=== PATIENT | female | born 1980 | race American Indian/Alaskan Native ===

== ENCOUNTER 2018-02-04 06:07 | Day surgery (SDC) | payer MEDICAID ==
--- NOTE | 2018-02-03 18:27 | History and Physical Report ---
History of Present Illness Date of examination: 02/02/18 Chief complaint: Multiparity desires permanent sterilization, dysfunctional uterine bleeding History of present illness: The patient is a 37-year-old -[place]er female 6 para 40-4 who presents for surgical sterilization despite knowledge of long-acting reversible contraceptives and dilation and curettage with hysteroscopy and NovaSure endometrial ablation secondary to dysfunctional uterine bleeding. Past History Past Medical History: hypertension, other (obesity) Past Surgical History: appendectomy, cholecystectomy, SET UP MECH[employer]IC [employer]OMATIC LINE/uterine surgery ( cervical conization), section SET UP MECH[employer]IC AUTOMATIC LINE History: abnormal PAP smear, trichomonas (remote history) Family/Genetic History: diabetes, heart disease, hypertension, cancer Social history: no significant social history Medications and Allergies Allergies Allergy/AdvReac Type Severity Reaction Status Date / Time Sulfa (Sulfonamide Allergy Hives Verified 02/03/18 16:39 Antibiotics) Home Medications Medication Instructions Recorded Confirmed Last Taken Type No Known Home Medications [No 02/03/18 02/03/18 Unknown History Reported Home Medications] Review of Systems All systems: negative - Physical Exam Breasts: Positive: deferred Cardiovascular: Regular rate Lungs: Positive: Clear to auscultation Abdomen: Positive: soft (obese) Extremities: Positive: normal Results All other labs normal. Assessment and Plan A: Dysfunctional uterine bleeding Desires permanent sterilization Hypertension Obesity P: Proceed with laparoscopic bilateral tubal ligation, dilation and curettage, hysteroscopy, NovaSure endometrial ablation and other indicated procedures.
[~2018-02-04 06:07] MED LIST: ANCEF/STERILE WATER 2 GM/20 ML 2 GM/20 ML SYRINGE IV NR; LACTATED RINGERS 1,000 ML IV SCH
[2018-02-04] MEDS ORDERED: MARCAINE 0.5% 30 ML INFILTRATI ONE (07:14)
--- NOTE | 2018-02-04 07:23 | Anesthesia Day of Surgery ---
Anesthesia Day of Surgery - Day of Surgery Patient Examined: Yes Patient H&P Reviewed: Yes Patient is NPO: Yes
--- NOTE | 2018-02-04 07:23 | Anesthesia Consultation ---
Anesthesia Consult and Med Hx Date of service: 02/04/18 - Airway Anesthetic Teeth Evaluation: Good ROM Head & Neck: Adequate Mental/Hyoid Distance: Adequate Mallampati Class: Class III Intubation Access Assessment: Probably Good - Pulmonary Exam CTA: Yes - Cardiac Exam Cardiac Exam: RRR - Pre-Operative Health Status ASA Pre-Surgery Classification: ASA3 Proposed Anesthetic Plan: General - Pulmonary Hx Smoking: Yes - Cardiovascular System Hx Hypertension: Yes (Not on any meds) - Central Nervous System Hx Psychiatric Problems: No - Gastrointestinal Hx Gastroesophageal Reflux Disease: No - Endocrine Hx Non-Insulin Dependent Diabetes: No - Other Systems Hx Alcohol Use: Yes (occas) Hx Cancer: No Hx Obesity: No
[2018-02-04] MEDS ORDERED: DIPRIVAN 10 MG/ML IV ONE ×2 (07:27→09:52)
[2018-02-04] MEDS ORDERED: SUBLIMAZE ONE (07:27)
[2018-02-04 07:29] LABS: Hematocrit 39.8 % (30.3-42.9); Hemoglobin 13.2 gm/dl (10.1-14.3); Mean Corpuscular HGB Conc 33 % (30-34); Mean Corpuscular Hemoglobin 36 pg (28-32); Mean Corpuscular Volume 107 fl (79-97); Platelet Count 370 K/mm3 (140-440); Red Cell Distribution Width 13.5 % (13.2-15.2)
[2018-02-04] MEDS ORDERED: VERSED IV NR (07:30)
[2018-02-04] MEDS ORDERED: ZOFRAN IV PRN (07:30)
[2018-02-04] MEDS ORDERED: DECADRON ONE (08:43)
[2018-02-04] MEDS ORDERED: PROAIR IH ONE (08:51)
[2018-02-04] MEDS ORDERED: NACL 0.9% IR ONE ×2 (08:55→08:56)
[2018-02-04] MEDS ORDERED: MARCAINE 0.5% INFILTRATI ONE (08:56)
[2018-02-04] MEDS ORDERED: DILAUDID ONE (09:04)
[2018-02-04] MEDS ORDERED: NEOSTIGMINE ONE (09:50)
[2018-02-04] MEDS ORDERED: ROBINUL ONE (09:50)
[2018-02-04] MEDS ORDERED: ZOFRAN ONE (10:00)
[2018-02-04] MEDS ORDERED: ZEMURON IV ONE (10:00)
[2018-02-04] MEDS: DILAUDID IV PRN ×2 (10:40→10:50)
--- NOTE | 2018-02-04 10:40 | Operative Report ---
Operative Report Operative Report: Date of procedure: February 04, 2018 Preoperative diagnosis: 1) Multiparity desires permanent sterilization 2) Dysfunctional Uterine Bleeding 3) Obesity 4) Hypertension Postoperative diagnosis: Same Procedure: 1) Laparoscopic bilateral tubal ligation via Filshie clip method 2) Dilation and Curettage with hysteroscopy 3) Novasure endometrial ablation Surgeon: Adelina Mcqueen M.D. Anesthesia: General endotracheal anesthesia Findings: 1) Small 8-10 wk sized anteverted mobile uterus which sounds to 8 cm 2) Proliferative endometrium on hysteroscopy Estimated blood loss: 25 mL IV fluid: 1000 mL Urine output: 350 mL, clear Specimens: Endometrial curettings to pathology Complications: None. Counts correct 2 Disposition: Stable to PACU Indications for procedure: The patient is a 37-year-old -[place] female 6 para 4024 who presents for surgical sterilization despite knowledge of long-acting reversible contraceptives and surgical management of dysfunctional uterine bleeding. Operation in detail: After the risks, benefits, alternatives and complications of the procedure were explained to the patient, she gave informed consent for the procedure. She was subsequently taken to the operating room with her IV noted to be running and placed in the dorsal supine position with sequential compression devices functioning. General endotracheal anesthesia was then induced with some difficulty. An exam under anesthesia was then performed yielding a 8-10 wk sized anteverted uterus. The patient was then placed in dorsal lithotomy position and prepped and draped in normal sterile fashion. A timeout was then performed. The bladder was then drained of urine yielding 250 mL of clear urine. An open sided speculum was placed into the vagina for visualization of the cervix. A single-tooth tenaculum was placed on the anterior lip of the cervix for traction. The uterus was then sounded to 8 cm. A uterine manipulator was then placed. The single-tooth tenaculum and speculum were then removed from the vagina. The surgeon's gloves were then changed. Attention was then turned to entry into the abdominal cavity. A 5 mm infraumbilical incision was made with an 11 blade. The skin was grasped on either side of the umbilicus with towel clamps and tented up. The Veres needle was placed into the peritoneal cavity at a straight angle, confirmed with a saline drop test. The abdomen was then insufflated with CO2 gas to a pressure of 15 mmHg. A 5 mm Visiport trocar was then placed. An anatomic survey was then performed with findings as indicated above. A second trocar site was created 4 cm superior to the pubic symphysis in the midline measuring 8 mm. An 8 mm trocar was then placed under direct visualization. The patient was placed in Trendelenburg position. The uterus was elevated out of the pelvis, and two Filshie clips were then placed across each fallopian tube at the level of the ampullae. At this time, all instruments were removed from the abdominal cavity. The pneumoperitoneum was released. The trocars were then removed from the peritoneal cavity after Valsalva maneuver. The incisions were then infiltrated with quarter percent Marcaine. The incisions were then reapproximated with 4-0 Vicryl in a subcuticular fashion. They were then each covered with Steri-Strips, telfa, and a tegaderm. At this time, attention was turned to the endometrial ablation. The bladder was again catheterized yielding an additional 100 mL of urine. An open sided speculum was then placed into the vagina for adequate visualization of the cervix. The uterine manipulator used during the tubal ligation was removed. The anterior lip of the cervix was then grasped with a tenaculum for traction. The cervical length was then sounded to 3 cm and the uterus was then sounded to 8 cm. The cavity length was then noted to be 5 cm. At this time a hysteroscope was introduced to visualize the endometrial cavity which revealed proliferative endometrium. A sharp endometrial curettage was then performed and the curettings were sent to pathology. At this time, Hardy dilators were used to sequentially dilate the cervix to a # 25. Next, the disposable NovaSure device was connected to the RF controller. The NovaSure disposable device was deployed to the locked position and noted to fully extend. The device was then placed in the unlocked position. The disposable device was then inserted into the uterine cavity with traction on the tenaculum. The device was then seated per protocol. After moving the device back 0.5 cm, the device was moved superiorly and inferiorly and rotated clockwise and counterclockwise to 45. The cavity width at this time was noted to be 4.5 cm. The cervical collar was then advanced to the cervix. The cavity assessment was then initiated and passed. The ablation procedure was then initiated and lasted for 51 seconds. The cervical collar was moved away from the cervix, the device was moved to the unlocked position, and the disposable NovaSure device was removed from the uterine cavity. The hysteroscope was reintroduced to visualize the charred endometrial cavity. At this time the single-tooth tenaculum was removed from the cervix. The tenaculum puncture sites were hemostatic. The speculum was then removed from the vagina and the procedure was ended. The patient was replaced into the dorsal supine position and extubated without difficulty. She was subsequently to the PACU in stable condition. She tolerated the procedure well. All counts were correct 2.
--- NOTE | 2018-02-04 10:56 | Short Stay Summary ---
Short Stay Documentation Date of service: 02/04/18 - History H&P: dictated Past Surgical History: No surgical history Social history: no significant social history - Allergies and Medications Current Medications: Allergies Sulfa (Sulfonamide Antibiotics) Allergy (Verified 02/03/18 16:39) Hives Home Medications Medication Instructions Recorded Confirmed Last Taken Type RX: No Known Home Medications [No 02/03/18 02/03/18 Unknown History Reported Home Medications] Active Medications Hydromorphone HCl (Dilaudid) 0.5 mg IV Q10MIN PRN PRN Reason: Pain , Severe (7-10) Stop: 02/04/18 12:00 Cefazolin Sodium (Ancef/Sterile Water 2 Gm/20 Ml) 2 gm in 20 mls @ 80 mls/hr IV PREOP NR; Protocol Stop: 02/04/18 23:59 Lactated Ringer's (Lactated Ringers) 1,000 mls @ 100 mls/hr IV DIRECT SUZETTE Last Admin: 02/04/18 07:05 Dose: 100 mls/hr Ondansetron HCl (Zofran) 4 mg IV ONCE PRN PRN Reason: Nausea And Vomiting Stop: 02/04/18 11:30 - Physical exam Breasts: deferred - Brief post op/procedure progress note Date of procedure: 02/04/18 Pre-op diagnosis: Multiparity desires sterilization, DUB, Hypertension, Obesity Post-op diagnosis: same Procedure: 1) Laparoscopic bilateral tubal ligation via Filshie clip method 2) Dilation and Curettage with hysteroscopy 3) Novasure endometrial ablation Anesthesia: GETA Findings: 1) Small 8-10 wk sized anteverted mobile uterus which sounds to 8 cm 2) Proliferative endometrium on hysteroscopy Surgeon: JAKI MCQUEEN Estimated blood loss: minimal (25 mL) Pathology: list (endmetrial curettings to pathology) Specimen disposition: to lab Condition: stable - Hospital course Hospital course: Patient underwent laparoscopic bilateral tubal ligation via Filshie clip method , dilation and curettage with hysteroscopy and NovaSure endometrial ablation she tolerated well. She was inserted in the PACU until she met discharge criteria. She'll follow-up in the office in [address] Mcqueen. - Disposition Condition at discharge: Stable Disposition: - TO HOME OR SELFCARE - Discharge Diagnoses (1) DUB (dysfunctional uterine bleeding) Status: Acute (2) Encounter for sterilization Status: Acute (3) Obesity (BMI 30.0-34.9) Status: Acute (4) Hypertension Status: Acute Qualifiers: Hypertension type: unspecified Qualified Code(s): I10 - Essential (primary ) hypertension Short Stay Discharge Plan Activity: other (Nothing in vagina x 4 wks, no heavy lifting greater than 15 pounds for 4 wks ) Weight Bearing Status: Full Weight Bearing Diet: regular Wound: keep clean and dry, remove dressing (on the second day after surgery ( Friday02/06/18)) Follow up with: SAADIA MENESES MD [Primary Care Provider] - 7 Days JAKI MCQUEEN MD [Staff Physician] - 02/18/18 (Please call to schedule appt for incision check ) Prescriptions: Ibuprofen [Motrin] 800 mg PO Q8HR PRN #30 tablet PRN Reason: Pain oxyCODONE /ACETAMINOPHEN [Percocet 5/325] 1 tab PO Q6HR PRN #30 tablet PRN Reason: Pain
[2018-02-04] MEDS ORDERED: TORADOL ONE (10:59)
[2018-02-04] MEDS ORDERED: TORADOL IV ONE (11:02)
[2018-02-04] MEDS ORDERED: PERCOCET 5/325 ONE (11:23)
[2018-02-04] MEDS ORDERED: PERCOCET 5/325 PO ONE (11:25)
[2018-02-04 15:14] VITALS: BP 152/88
== END 2018-02-04 13:05 | disposition home or self-care (01) ==
LOC: OR 06:07
PROVIDERS: ATTEND Obstetrics & Gynecology
DX: N85.8 Other specified noninflammatory disorders of uterus (principal); N93.8 Other specified abnormal uterine and vaginal bleeding; I10 Essential (primary) hypertension; E66.9 Obesity, unspecified; F17.200 Nicotine dependence, unspecified, uncomplicated; Z68.34 Body mass index [BMI] 34.0-34.9, adult; Z98.890 Other specified postprocedural states; Z90.49 Acquired absence of other specified parts of digestive tract; Z88.2 Allergy status to sulfonamides; Z68.33 Body mass index [BMI] 33.0-33.9, adult
CPT/HCPCS: 36415; 58563; 58671; 81025; 85027; 86850; 86900; 86901; 88305; A4217; J0690; J1100; J1170; J1885; J2250; J2405; J2704; J2710; J3010; J7120

== ENCOUNTER 2018-11-02 00:09 | Emergency (ER) | payer MEDICAID ==
[2018-11-02] MEDS ORDERED: PERCOCET 5/325 PO STA (02:15)
--- NOTE | 2018-11-02 02:36 | Emergency Department Report ---
ED ENT HPI - General Chief complaint: Dental/Oral Stated complaint: ABCESS AND ARM ABD PAIN Time Seen by Provider: 11/02/18 01:32 Source: patient Mode of arrival: Ambulatory Limitations: No Limitations - History of Present Illness MD complaint: tooth pain -: Gradual, year(s) (chronic poor dentition with occasional dental pain off and on for the past couple years, worse over the past few days with pain to the right side of the mouth.) Quality: dull, constant Consistency: constant Improves with: none Worsens with: none Context- Dental: history of dental caries, poor dental care Associated Symptoms: toothache - Related Data Previous Rx's Medication Instructions Recorded Last Taken Type Ibuprofen [Motrin] 800 mg PO Q8HR PRN #30 tablet 02/04/18 Unknown Rx oxyCODONE /ACETAMINOPHEN [Percocet 1 tab PO Q6HR PRN #30 tablet 02/04/18 Unknown Rx 5/325] Amoxicillin 500 mg PO QID #40 capsule 11/02/18 Unknown Rx Chlorhexidine Mouthwash [Peridex] 15 ml MM BID #473 bottle 11/02/18 Unknown Rx Lidocaine Viscous 2% 5 ml MM Q3H PRN #120 udc 11/02/18 Unknown Rx Allergies Allergy/AdvReac Type Severity Reaction Status Date / Time Sulfa (Sulfonamide Allergy Hives Verified 02/03/18 16:39 Antibiotics) ED Dental HPI - General Chief complaint: Dental/Oral Stated complaint: ABCESS AND ARM ABD PAIN Time Seen by Provider: 11/02/18 01:32 Source: patient Mode of arrival: Ambulatory Limitations: No Limitations - Related Data Previous Rx's Medication Instructions Recorded Last Taken Type Ibuprofen [Motrin] 800 mg PO Q8HR PRN #30 tablet 02/04/18 Unknown Rx oxyCODONE /ACETAMINOPHEN [Percocet 1 tab PO Q6HR PRN #30 tablet 02/04/18 Unknown Rx 5/325] Amoxicillin 500 mg PO QID #40 capsule 11/02/18 Unknown Rx Chlorhexidine Mouthwash [Peridex] 15 ml MM BID #473 bottle 11/02/18 Unknown Rx Lidocaine Viscous 2% 5 ml MM Q3H PRN #120 udc 11/02/18 Unknown Rx Allergies Allergy/AdvReac Type Severity Reaction Status Date / Time Sulfa (Sulfonamide Allergy Hives Verified 02/03/18 16:39 Antibiotics) ED Review of Systems ROS: Stated complaint: ABCESS AND ARM ABD PAIN Other details as noted in HPI Constitutional: denies: chills, fever Eyes: denies: eye pain, eye discharge, vision change ENT: dental pain. denies: ear pain, throat pain Respiratory: denies: cough, shortness of breath, wheezing Cardiovascular: denies: chest pain, palpitations Endocrine: no symptoms reported Gastrointestinal: denies: abdominal pain, nausea, diarrhea Genitourinary: denies: urgency, dysuria, discharge Musculoskeletal: denies: back pain, joint swelling, arthralgia Skin: denies: rash, lesions Neurological: denies: headache, weakness, paresthesias Psychiatric: denies: anxiety, depression Hematological/Lymphatic: denies: easy bleeding, easy bruising ED Past Medical Hx - Past Medical History Previous Medical History?: Yes Hx Hypertension: Yes (Not on any meds) Hx GERD: Yes Hx Headaches / Migraines: Yes (Past hx migraines) Additional medical history: umbilical hernia - Surgical History Past Surgical History?: Yes Hx Cholecystectomy: Yes Hx Appendectomy: Yes Additional Surgical History: gallbladder removed, . HERNIA REPAIR - Social History Smoking Status: Current Every Day Smoker - Medications Home Medications: Home Medications Medication Instructions Recorded Confirmed Last Taken Type Ibuprofen [Motrin] 800 mg PO Q8HR PRN #30 tablet 02/04/18 Unknown Rx oxyCODONE /ACETAMINOPHEN [Percocet 1 tab PO Q6HR PRN #30 tablet 02/04/18 Unknown Rx 5/325] Amoxicillin 500 mg PO QID #40 capsule 11/02/18 Unknown Rx Chlorhexidine Mouthwash [Peridex] 15 ml MM BID #473 bottle 11/02/18 Unknown Rx Lidocaine Viscous 2% 5 ml MM Q3H PRN #120 udc 11/02/18 Unknown Rx ED Physical Exam - General Limitations: No Limitations General appearance: alert, in no apparent distress - Head Head exam: Present: atraumatic, normocephalic - Eye Eye exam: Present: normal appearance, PERRL, EOMI - ENT ENT exam: Present: mucous membranes moist, other (singularly eroded dentition throughout. The into cavities with several dental fractures and adjacent gingival erythema. Right side worse than left. Tube #1 is severely severely eroded with adjacent gingival swelling. No abscess is noted.) - Neck Neck exam: Present: normal inspection - Respiratory Respiratory exam: Present: normal lung sounds bilaterally. Absent: respiratory distress - Cardiovascular Cardiovascular Exam: Present: regular rate, normal rhythm. Absent: systolic murmur, diastolic murmur, rubs, gallop - GI/Abdominal GI/Abdominal exam: Present: soft, normal bowel sounds - Extremities Exam Extremities exam: Present: normal inspection - Back Exam Back exam: Present: normal inspection - Neurological Exam Neurological exam: Present: alert, oriented X3 - Psychiatric Psychiatric exam: Present: normal affect, normal mood - Skin Skin exam: Present: warm, dry, intact, normal color. Absent: rash ED Course Vital Signs 11/02/18 00:11 Temperature 98.9 F Pulse Rate 90 Respiratory 18 Rate Blood Pressure 143/97 O2 Sat by Pulse 97 Oximetry Critical care attestation.: If time is entered above; I have spent that time in minutes in the direct care of this critically ill patient, excluding procedure time. ED Disposition Clinical Impression: Dentalgia, Tooth fracture Disposition: TO HOME OR SELFCARE Is pt being admited?: No Does the pt Need Aspirin: No Condition: Stable Instructions: Dental Caries (ED), Acute dental trauma (ED), Toothache (ED) Prescriptions: Amoxicillin 500 mg PO QID #40 capsule Chlorhexidine Mouthwash [Peridex] 15 ml MM BID #473 bottle Lidocaine Viscous 2% 5 ml MM Q3H PRN #120 udc PRN Reason: Pain, Moderate (4-6) Referrals: LENNOX DIAS MD [Primary Care Provider] - 3-5 Days [facility] [Outside] - 3-5 Days
[2018-11-02 03:31] VITALS: BP 132/82
== END 2018-11-02 03:30 | disposition home or self-care (01) ==
LOC: ED 00:09
DX: S02.5XXA Fracture of tooth (traumatic), initial encounter for closed fracture (principal); I10 Essential (primary) hypertension; K21.9 Gastro-esophageal reflux disease without esophagitis; G43.909 Migraine, unspecified, not intractable, without status migrainosus; Z90.49 Acquired absence of other specified parts of digestive tract; F17.200 Nicotine dependence, unspecified, uncomplicated; X58.XXXA Exposure to other specified factors, initial encounter; Y93.89 Activity, other specified; Y92.89 Other specified places as the place of occurrence of the external cause; Y99.8 Other external cause status

== ENCOUNTER 2020-12-29 11:59 | Emergency (ER) | payer MEDICAID ==
[2020-12-29 12:51] VITALS: BP 134/71
--- NOTE | 2020-12-29 12:58 | Emergency Department Report ---
ED General Adult HPI - General Chief complaint: Skin Rash Stated complaint: BROKE OUT EVERYWHERE Time Seen by Provider: 12/29/20 12:50 Source: patient Mode of arrival: Ambulatory Limitations: No Limitations - History of Present Illness Initial comments: 40-year-old -[place] female complains of itchy rash to the arms, chest, and back x2 days. She denies any changes in her products and only known allergy is to sulfa. No recent stays in hotels per patient. She denies the rash being painful or it being on the palms or her soles. She has not tried any OTC medicine for symptoms. She also complains of a vaginal herpetic outbreak. She states she has had genital herpes for many years and that the rash is consistent with her normal outbreak. - Related Data Home Medications Medication Instructions Recorded Confirmed Last Taken Amitiza 8 mcg PO BID 03/29/19 03/29/19 Unknown Previous Rx's Medication Instructions Recorded Last Taken Type Loratadine 10 mg PO QDAY 10 Days #10 tablet 12/29/20 Unknown Rx Prednisone [predniSONE 10 mg 10 mg PO .TAPER #1 tab.ds.pk 12/29/20 Unknown Rx (6-Day Pack, 21 Tabs)] Triamcinolone Acetonide 60 ml TP TID PRN 7 Days #1 lotion 12/29/20 Unknown Rx [Triamcinolone 0.1% LOTION] Valacyclovir HCl [Valacyclovir] 1,000 mg PO QDAY 5 Days #5 tablet 12/29/20 Unknown Rx Allergies Allergy/AdvReac Type Severity Reaction Status Date / Time Sulfa (Sulfonamide Allergy Hives Verified 02/03/18 16:39 Antibiotics) ED Review of Systems ROS: Stated complaint: BROKE OUT EVERYWHERE Other details as noted in HPI Constitutional: denies: chills, fever, malaise Respiratory: denies: cough, shortness of breath Cardiovascular: denies: chest pain Gastrointestinal: denies: abdominal pain Musculoskeletal: denies: joint swelling, arthralgia Skin: rash Neurological: denies: headache Hematological/Lymphatic: denies: swollen glands ED Past Medical Hx - Past Medical History Previous Medical History?: Yes Hx Hypertension: Yes (Not on any meds) Hx GERD: Yes Hx Headaches / Migraines: Yes (Past hx migraines) Additional medical history: umbilical hernia - Surgical History Past Surgical History?: Yes Hx Cholecystectomy: Yes Hx Appendectomy: Yes Additional Surgical History: gallbladder removed, . HERNIA REPAIR - Social History Smoking Status: Current Every Day Smoker - Medications Home Medications: Home Medications Medication Instructions Recorded Confirmed Last Taken Type Amitiza 8 mcg PO BID 03/29/19 03/29/19 Unknown History Loratadine 10 mg PO QDAY 10 Days #10 tablet 12/29/20 Unknown Rx Prednisone [predniSONE 10 mg 10 mg PO .TAPER #1 tab.ds.pk 12/29/20 Unknown Rx (6-Day Pack, 21 Tabs)] Triamcinolone Acetonide 60 ml TP TID PRN 7 Days #1 lotion 12/29/20 Unknown Rx [Triamcinolone 0.1% LOTION] Valacyclovir HCl [Valacyclovir] 1,000 mg PO QDAY 5 Days #5 tablet 12/29/20 Unknown Rx ED Physical Exam - General Limitations: No Limitations General appearance: alert, in no apparent distress - Head Head exam: Present: atraumatic, normocephalic - Eye Eye exam: Present: normal appearance - Neck Neck exam: Present: normal inspection - Respiratory Respiratory exam: Absent: respiratory distress - Cardiovascular Cardiovascular Exam: Present: regular rate - Extremities Exam Extremities exam: Present: full ROM - Neurological Exam Neurological exam: Present: alert, oriented X3 - Psychiatric Psychiatric exam: Present: normal affect, normal mood - Skin Skin exam: Present: warm, dry, intact, normal color, rash (Diffuse papular rash noted to chest, arms (worse in antecubital fossa's) and back without cellulitic changes or erythema or crusting noted; rash is nontender; no linear patterns noted) ED Medical Decision Making - Medical Decision Making 40-year-old -[place] female complains of itchy rash to the arms, chest, and back x2 days. She denies any changes in her products and only known allergy is to sulfa. No recent stays in hotels per patient. She denies the rash being painful or it being on the palms or her soles. She has not tried any OTC medicine for symptoms. She also complains of a vaginal herpetic outbreak. She states she has had genital herpes for many years and that the rash is consistent with her normal outbreak. We will treat for contact dermatitis. Valacyclovir given for herpes outbreak. Recommend follow-up with PCP in 3 to 5 days. She is well-appearing, her vitals are within normal limits, she is stable for discharge home. Discussed signs and symptoms that should prompt immediate return to the emergency department in detail with patient who verbalizes understanding. Critical care attestation.: If time is entered above; I have spent that time in minutes in the direct care of this critically ill patient, excluding procedure time. ED Disposition Clinical Impression: Rash and nonspecific skin eruption Disposition: TO HOME OR SELFCARE Is pt being admited?: No Condition: Stable Instructions: Contact Dermatitis Prescriptions: Loratadine 10 mg PO QDAY 10 Days #10 tablet Prednisone [predniSONE 10 mg (6-Day Pack, 21 Tabs)] 10 mg PO .TAPER #1 tab.ds.pk Triamcinolone Acetonide [Triamcinolone 0.1% LOTION] 60 ml TP TID PRN 7 Days #1 lotion PRN Reason: Itching Valacyclovir HCl [Valacyclovir] 1,000 mg PO QDAY 5 Days #5 tablet Referrals: PRIMARY CARE, [Primary Care Provider] - 3-5 Days Forms: Work/School Release Form(ED)
== END 2020-12-29 13:39 | disposition home or self-care (01) ==
LOC: ED 11:59
DX: R21 Rash and other nonspecific skin eruption (principal); I10 Essential (primary) hypertension; K21.9 Gastro-esophageal reflux disease without esophagitis; G43.909 Migraine, unspecified, not intractable, without status migrainosus; F17.200 Nicotine dependence, unspecified, uncomplicated; Z90.49 Acquired absence of other specified parts of digestive tract; Z98.890 Other specified postprocedural states; Z79.899 Other long term (current) drug therapy; Z88.2 Allergy status to sulfonamides
CPT/HCPCS: 99281

== ENCOUNTER 2022-02-06 14:58 | Emergency (ER) | payer MEDICAID ==
--- NOTE | 2022-02-06 18:08 | XRay Report ---
CHEST 2 VIEWS INDICATION: Chest Pain. COMPARISON: None. FINDINGS: Support devices: None. Heart: Within normal limits. Lungs/Pleura: No acute air space or interstitial disease. No significant pleural effusion. IMPRESSION: No acute findings. Signer Name: Tony Plaza MD Signed: 02/06/2022 6:03 PM Workstation Name: [id number]
[2022-02-06 18:34] LABS: Basophils # (Auto) 0.1 K/mm3 (0.0-0.1); Basophils % (Auto) 0.6 % (0.0-1.8); Eosinophils # (Auto) 0.1 K/mm3 (0.0-0.4); Eosinophils % (Auto) 1.2 % (0.0-4.3); Hematocrit 41.1 % (30.3-42.9); Hemoglobin 14.3 gm/dl (10.1-14.3); Lymphocytes # (Auto) 1.9 K/mm3 (1.2-5.4); Lymphocytes % (Auto) 21.3 % (13.4-35.0); Mean Corpuscular HGB Conc 35 % (30-34); Mean Corpuscular Volume 118 fl (79-97); Monocytes # (Auto) 0.5 K/mm3 (0.0-0.8); Monocytes % (Auto) 5.6 % (0.0-7.3); Platelet Count 332 K/mm3 (140-440); Red Blood Count 3.48 M/mm3 (3.65-5.03); Red Cell Distribution Width 13.9 % (13.2-15.2)
[2022-02-06 18:51] LABS: INR 0.95 (0.87-1.13)
[2022-02-06 18:53] LABS: Partial Thromboplastin Time 30.3 Sec. (24.2-36.6)
[2022-02-06 19:00] LABS: Alanine Aminotransferase 12 units/L (7-56); Albumin 4.5 g/dL (3.9-5); Blood Urea Nitrogen 9 mg/dL (7-17); Calcium 9.4 mg/dL (8.4-10.2); Hemolysis Index 11
[2022-02-06 19:06] LABS: BUN/Creatinine Ratio 13
[2022-02-06 22:10] VITALS: BP 156/86
--- NOTE | 2022-02-07 12:12 | Electrocardiograph Report ---
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
== END 2022-02-06 22:25 | disposition left against medical advice (07) ==
LOC: ED 14:58
DX: R07.9 Chest pain, unspecified (principal); Z53.21 Procedure and treatment not carried out due to patient leaving prior to being seen by health care provider
CPT/HCPCS: 36415; 71046; 80053; 84484; 85025; 85610; 85730; 93005

== ENCOUNTER 2022-03-20 05:55 | Observation (INO) | payer MEDICAID ==
--- NOTE | 2022-03-18 13:52 | Anesthesia Consultation ---
Anesthesia Consult and Med Hx Date of service: 03/20/22 - Airway Anesthetic Teeth Evaluation: Poor (denies loose teeth) ROM Head & Neck: Adequate Mental/Hyoid Distance: Adequate Mallampati Class: Class III Intubation Access Assessment: Possibly Difficult - Pulmonary Exam CTA: Yes - Cardiac Exam Cardiac Exam: RRR - Pre-Operative Health Status ASA Pre-Surgery Classification: ASA2 Proposed Anesthetic Plan: General Nerve Block: TAP - Pulmonary Hx Smoking: Yes (2 cigars per day) Hx Respiratory Symptoms: No - Cardiovascular System Hx Hypertension: Yes (not currently on antihypertensives) - Central Nervous System CVA: No - Endocrine Hx Renal Disease: No Hx Liver Disease: No Hx Insulin Dependent Diabetes: No Hx Non-Insulin Dependent Diabetes: No Hx Hypothyroidism: No - Additional Comments Anesthesia Medical History Comments: No hx anesthetic complications.
[2022-03-18 13:54] LABS: Basophils # (Auto) 0.1 K/mm3 (0.0-0.1); Basophils % (Auto) 0.6 % (0.0-1.8); Eosinophils # (Auto) 0.1 K/mm3 (0.0-0.4); Lymphocytes # (Auto) 2.4 K/mm3 (1.2-5.4); Lymphocytes % (Auto) 25.2 % (13.4-35.0); Mean Corpuscular HGB Conc 35 % (30-34); Mean Corpuscular Volume 117 fl (79-97); Monocytes # (Auto) 0.4 K/mm3 (0.0-0.8); Monocytes % (Auto) 4.3 % (0.0-7.3); Platelet Count 326 K/mm3 (140-440); Red Blood Count 3.42 M/mm3 (3.65-5.03); Red Cell Distribution Width 13.9 % (13.2-15.2)
[2022-03-20] MEDS ORDERED: SCOPOLAMINE TRANSDERMAL PATCH 72 HR TD NR (06:00)
[2022-03-20] MEDS ORDERED: GABAPENTIN 300 MG CAP PO NR (06:00)
[2022-03-20] MEDS ORDERED: ceFAZolin/Water 2 GM/20 ML 2 GM/20 ML SYRINGE IV NR (06:00)
[2022-03-20] MEDS ORDERED: fentaNYL 100 MCG/2 ML INJ IV PRN (06:00)
[2022-03-20] MEDS ORDERED: ACETAMINOPHEN 500 MG TAB PO SCH (06:00)
[2022-03-20] MEDS ORDERED: MIDAZOLAM 2 MG/2 ML INJ IV NR (06:00)
[2022-03-20] MEDS ORDERED: BACTERIOSTATIC SODIUM CHLORIDE 0.9% 30 ML VIAL INFILTRATI ONE (06:47)
--- NOTE | 2022-03-20 07:01 | History and Physical Report ---
History of Present Illness Date of examination: 03/11/22 Chief complaint: Pelvic Pain, Dysfunctional Uterine Bleeding History of present illness: Pt is a 41 year old who presents for definitive management of pelvic pain and uterine fibroids. 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 GRINDER History: abnormal PAP smear, fibroids, herpes Family/Genetic History: hypertension, cancer Social history: no significant social history - Obstetrical History : 6 Para: 4 Hx # Term Pregnancies: 4 Number of Pregnancies: 0 Spontaneous Abortions: 0 Induced : 2 Number of Living Children: 4 Medications and Allergies Allergies Allergy/AdvReac Type Severity Reaction Status Date / Time Sulfa (Sulfonamide Allergy Hives Verified 03/14/22 17:35 Antibiotics) Home Medications Medication Instructions Recorded Confirmed Last Taken Type Valacyclovir HCl [Valacyclovir] 1,000 mg PO QDAY 5 Days #5 tablet 12/29/20 03/14/22 Unknown Rx Active Meds: Active Medications Acetaminophen (Acetaminophen 500 Mg Tab) 1,000 mg PO PREOP SUZETTE Stop: 03/20/22 23:59 Fentanyl (Fentanyl 100 Mcg/2 Ml Inj) 100 mcg IV ONCE PRN PRN Reason: sedation for nerve block Stop: 03/20/22 23:59 Gabapentin (Gabapentin 300 Mg Cap) 300 mg PO PREOP NR Stop: 03/20/22 23:59 Lactated Ringer's (Lactated Ringers) 1,000 mls @ 100 mls/hr IV DIRECT SUZETTE Stop: 03/20/22 23:59 Cefazolin Sodium (Ancef/Sterile Water 2 Gm/20 Ml) 2 gm in 20 mls @ 80 mls/hr IV PREOP NR; Protocol Stop: 03/20/22 20:00 Methocarbamol (Methocarbamol 500 Mg Tab) 750 mg PO PREOP SUZETTE Stop: 03/20/22 23:59 Midazolam HCl (Midazolam 2 Mg/2 Ml Inj) 2 mg IV PREOP NR Stop: 03/20/22 23:59 Scopolamine (Scopolamine Transdermal Patch 72 Hr) 1 each TD PREOP NR Stop: 03/20/22 23:59 Review of Systems All systems: negative - Vital Signs Vital signs: Vital Signs Temp Pulse Resp BP Pulse Ox 98.1 F 84 20 141/87 98 03/18/22 13:00 03/18/22 13:00 03/18/22 13:00 03/18/22 13:00 03/18/22 13:00 Temp Pulse Resp BP Pulse Ox 98.1 F 84 20 141/87 98 03/18/22 13:00 03/18/22 13:00 03/18/22 13:00 03/18/22 13:00 03/18/22 13:00 - Physical Exam Breasts: Positive: deferred Cardiovascular: Regular rate Lungs: Positive: Clear to auscultation (obese ) Abdomen: Positive: soft Extremities: Positive: normal Results Result Diagrams: 03/18/22 06:00 All other labs normal. Assessment and Plan A: Pelvic Pain Fibroid Uterus P: Proceed with robotic assisted laparoscopic hysterectomy, possible exploratory laparotmy, bilateral salpingectomy and other indicated procedures
--- NOTE | 2022-03-20 07:19 | Anesthesia Day of Surgery ---
Anesthesia Day of Surgery - Day of Surgery Patient Examined: Yes Patient H&P Reviewed: Yes Patient is NPO: Yes
[2022-03-20] MEDS ORDERED: NEOMY 40 MG/POLYMYXIN B 200,000 UNITS/ML (GU) AMPULE IR ONE ×2 (07:22→09:14)
[2022-03-20] MEDS ORDERED: LIDOCAINE (1%) 10 MG/1 ML VIAL 20 ML MDV ONE (07:24)
[2022-03-20] MEDS ORDERED: dexAMETHasone 4 MG/ML VIAL ONE (07:24)
[2022-03-20] MEDS ORDERED: BUPIVACAINE-EPINEPHRINE/PF 0.25%-1:200,000 (30 ML) VIAL INFILTRATI ONE (07:24)
[2022-03-20] MEDS ORDERED: cloNIDine/PF 1,000 MCG/10 ML VIAL EP ONE (07:24)
[2022-03-20] MEDS ORDERED: ONDANSETRON 4 MG/2 ML INJ IV PRN ×2 (07:30→13:32)
[2022-03-20] MEDS ORDERED: HYDROmorphone 0.5 MG/0.5 ML INJ IV PRN (07:30)
[2022-03-20] MEDS ORDERED: LIDOCAINE MPF (2%) 20 MG/1 ML VIAL 5 ML ONE (07:42)
[2022-03-20] MEDS ORDERED: ONDANSETRON 4 MG/2 ML INJ ONE (07:42)
[2022-03-20] MEDS ORDERED: ROCURONIUM 50 MG/5 ML INJ IV ONE (07:42)
[2022-03-20] MEDS ORDERED: propofoL 200 MG/20 ML VIAL IV ONE (07:43)
[2022-03-20] MEDS ORDERED: HYDROmorphone 1 MG/1 ML INJ ONE (07:43)
[2022-03-20] MEDS: LACTATED RINGERS 1,000 ML IV SCH ×2 (07:50→12:25)
[2022-03-20] MEDS ORDERED: SODIUM CHLORIDE 0.9% IRRIG SOLN 2000 ML IR ONE (09:15)
[2022-03-20] MEDS ORDERED: SODIUM CHLORIDE 0.9% IRR 1,500 ML BOTTLE IR ONE (09:15)
[2022-03-20] MEDS ORDERED: LACTATED RINGERS 1,000 ML ONE (10:09)
[2022-03-20] MEDS ORDERED: dexAMETHasone 20 MG/5 ML VIAL ONE (10:12)
[2022-03-20] MEDS ORDERED: GLYCOPYRROLATE 0.4 MG/2 ML INJ ONE (11:00)
[2022-03-20] MEDS ORDERED: NEOSTIGMINE 10MG/10 ML INJ MDV ONE (11:00)
[2022-03-20] MEDS ORDERED: KETOROLAC 30 MG/1 ML INJ ONE (11:14)
--- NOTE | 2022-03-20 11:30 | Operative Report ---
Operative Report Operative Report: Date of Surgery: March 20, 2022 Preoperative Diagnoses: 1) Pelvic Pain 2) Fibroid Uterus 3) Vulvar mass Postoperative Diagnoses: Same Procedure: 1) Robotic-assisted Total Laparoscopic Hysterectomy 2) Bilateral salpingectomy 3) Excision of vulvar mass Surgeon: Adelina Mcqueen M.D. Assistants: Jomar Bhatt Anesthesia: GETA Findings: 1) Anteverted boggy uterus with multiple fibroids which sounded to 7 cm 2) Normal appearing ovaries and fallopian tubes, Evidence of previous tubal ligation 3) 1 cm left vulvar mass containing thick white material Estimated blood loss: 100 mL Drains: Bennett to gravity Specimen: Uterus, cervix and bilateral fallopian tubes, vulvar mass contents to pathology Complications: None. Counts correct x 2 Disposition: PACU Indication: Pt is a 41 year old -[place] female who presents for surgical management of pelvic pain and uterine fibroids. She also desires exc ision of left vulvar mass. Procedure: After the risks, benefits, alternatives, and complications of the procedure were explained to the patient she gave informed consent for the procedure. She was subsequently taken to the operating room where general endotracheal anesthesia was found to be adequate. She was then placed in the dorsal lithotomy position and prepped and draped in a normal sterile fashion. A timeout was performed. An exam under anesthesia was performed yielding a normal sized anteverted uterus. A Bennett catheter was placed to drain the bladder. A bivalve speculum was placed in the patient's vagina and a single-tooth tenaculum placed on the anterior lip of the cervix for traction. The uterus was sounded to 7 cm. A stay suture of 0-Vicryl was placed at 3 o'clock on the anterior cervix. A [employer] uterine manipulator was placed, and the single tooth tenaculum and bivalve speculum were then removed. A warm laparotomy sponge was then placed in the vagina. Attention was then turned to the patient's abdomen where a 12 mm supraumbilical skin incision was then made. A Veress needle was placed into the peritoneal cavity with entry confirmed with a saline drop test. The peritoneal cavity was then insufflated with CO2 gas to a pressure of 15 mm Hg. The 12 mm trocar was then placed under direct visualization. Two additional 8 mm robotic trocars were placed on the patient's left and right lateral side just opposite of the supraumbilical trocar. An additional 5 mm right lateral trocar was then placed as the accessory port. The supraumbilical 12 mm fascial incision was reapproximated with 0 Vicryl suture using the Philippe Bazan device. The patient was then placed in steep Trendelenburg. The da Brock robot was then engaged. A fenestrated forcep was placed in arm 2 and a vessel sealer was placed in arm 1. General survey of the abdomen and pelvis reveals a boggy normal sized uterus, with fallopian tubes with Filshie clips from previous tubal ligation and normal appearing ovaries. The surgeon then transferred to the surgical console. The vessel sealer was used to coagulate and transect the right utero-ovarian ligament and mesosalpinx, in order to excise the right fallopian tube. The right round ligament was then coagulated and transected also. The vesicouterine peritoneum was then entered from the patient's right side. The right uterine vessels were then coagulated and transected with the vessel sealer. Attention was then turned to the patient's left side. The left utero-ovarian ligament and round ligament were coagulated and transected with the vessel sealer. The vesicouterine peritoneum was then entered from the left and joined in the midline with the vessel sealer. The peritoneum was reflected off of the lower uterine segment. The left uterine vessels were then coagulated and transected with the vessel sealer. A posterior colpotomy was created with the monopolar scissors. The incision was continued circumferentially until anterior colpotomy was created. The uterus, cervix and fallopian tubes were then delivered through the vagina and a warm laparotomy sponge was placed in the vagina to maintain the pneumoperitoneum. The vaginal cuff was then reapproximated in a running fashion with V Loc suture. Irrigation of the pelvis was performed. Hemostasis was noted. Surgicel powder was applied to the vaginal cuff. The da Brock robot was undocked. The insufflation was released and the trocars were removed atraumatically. The skin incisions were then reapproximated with 4-0 Monocryl and skin glue. Attention was then turned to the excision of the vulvar mass. The overlying skin was incised with a 15 blade. There was egress of thick white material which was sent to pathology. The defect was irrigated with saline, and reapproximated with 3-0 Vicryl in a subcuticular fashion. The skin was covered with skin glue. The procedure was ended. The patient was then successfully extubated and taken to the PACU in stable condition. All instrument, lap and needle counts were correct x2.
[2022-03-20] MEDS ORDERED: KETOROLAC 30 MG/1 ML INJ IV PRN (13:32)
[2022-03-20] MEDS ORDERED: NALOXONE 0.4 MG/1 ML INJ IV PRN (13:32)
[2022-03-20] MEDS ORDERED: MORPHINE 4 MG/1 ML INJ IV PRN (13:32)
[2022-03-20] MEDS ORDERED: IBUPROFEN 800 MG TAB PO PRN (13:32)
[2022-03-20] MEDS ORDERED: ACETAMINOPHEN 325 MG TAB PO PRN (13:32)
[2022-03-20] MEDS ORDERED: MORPHINE 2 MG/1 ML INJ IV PRN (13:32)
--- NOTE | 2022-03-20 13:51 | Post Anesthesia Evaluation ---
- Post Anesthesia Evaluation Patient Participated: Yes Airway Patent: Yes Stable Respiratory Function: Yes Nausea/Vomiting: No Temp > 96.8F: Yes Pain Manageable: Yes Adequeate Hydration: Yes Anesthesia Complications: No
[2022-03-20] MEDS ORDERED: D5W/LACTATED RINGERS 1,000 ML IV SCH (14:00)
[2022-03-20] MEDS: ceFAZolin/NS 1 GM/50 ML 1 GM/50 ML BAG IV SCH (17:27)
[2022-03-20] MEDS: oxyCODONE /ACETAMINOPHEN 5-325MG TAB PO PRN (22:18)
[2022-03-21] MEDS: ceFAZolin/NS 1 GM/50 ML 1 GM/50 ML BAG IV SCH (02:06)
[2022-03-21] MEDS: oxyCODONE /ACETAMINOPHEN 5-325MG TAB PO PRN ×2 (06:04→11:27)
--- NOTE | 2022-03-21 07:28 | Progress Note ---
Assessment and Plan A: POD#1 s/p robotic hysterectomy/bilateral salpingectomy Pelvic Pain Fibroid Uterus P: Routine postop care Optimize pain regimen Anticipate discharge later today Subjective - Subjective Date of service: 03/21/22 Principal diagnosis: POD#1 s/p robotic hysterectomy/bilateral salpingectomy Interval history: Poor pain control overnight. Voiding without difficulty. Minimal vaginal spotting. Patient reports: appetite normal, voiding normally, flatus, pain poorly controlled, ambulating normally, no bowel movement Objective - Vital Signs Latest vital signs: Vital Signs Temp Pulse Resp BP BP Pulse Ox 03/21/22 06:04 20 03/21/22 05:04 98.8 F 64 20 95/46 94 03/21/22 02:35 18 03/21/22 02:05 20 03/20/22 23:58 97.8 F 61 20 121/57 96 03/20/22 23:18 18 03/20/22 22:18 20 03/20/22 20:00 98.5 F 98 H 18 114/61 100 03/20/22 17:36 98.6 F 73 20 129/73 96 03/20/22 13:00 97.9 F 64 13 113/45 100 03/20/22 12:45 61 13 105/51 100 03/20/22 12:30 61 13 110/54 100 03/20/22 12:15 65 14 110/51 100 03/20/22 12:00 60 14 110/51 100 03/20/22 11:45 59 L 15 114/55 100 03/20/22 11:40 60 16 114/54 100 03/20/22 11:36 97.7 F 76 13 125/60 100 03/20/22 08:50 12 03/20/22 08:01 75 12 131/65 99 03/20/22 07:56 68 11 L 137/75 99 03/20/22 07:50 70 14 142/67 98 03/20/22 07:35 14 Intake and Output 03/20/22 03/21/22 03/21/22 22:59 06:59 14:59 Intake Total 730 480 Output Total 1999 800 Balance -1270 -320 Intake: IV 50 ANCEF/NS 1 GM/50 ML 1 gm 50 In 50 ml @ 100 mls/hr IV Q8H [facility] Rx#:[id number] Oral 680 Intake, Free Water 480 Output: Urine 2000 800 Indwelling Catheter 2000 Void 800 Other: Total, Intake Amount 360 Total, Output Amount 1000 600 Voiding Method Indwelling Catheter Toilet # Voids Void 1 - Exam Breasts: Present: deferred Abdomen: Present: soft (obese), distention (mild ) Extremities: Present: normal. Absent: tenderness Incision: Present: intact
[2022-03-21] MEDS ORDERED: SIMETHICONE 80 MG CHEW TAB PO NR (07:29)
--- NOTE | 2022-03-21 07:34 | Discharge Summary ---
Providers - Providers Date of Admission: 03/20/22 11:46 Date of discharge: 03/21/22 Attending physician: JAKI MCQUEEN Primary care physician: SAADIA MENESES Hospitalization Reason for admission: other (hysterectomy ) Hospital course: This patient was admitted for robotic hysterectomy and bilateral salpingectomy which she tolerated well. Her postoperative course was uncomplicated and she met discharge criteria on postoperative day #1. She will follow-up in the office with Dr. Mcqueen in 1 week for an incision check. Condition at discharge: Stable Disposition: 01 HOME / SELF CARE / HOMELESS - Discharge Diagnoses (1) Pelvic pain Status: Acute (2) Fibroid uterus Status: Acute Qualifiers: Uterine leiomyoma location: unspecified location Qualified Code(s): D25.9 - Leiomyoma of uterus, unspecified Plan - Discharge Medications Prescriptions: Docusate Sodium [Colace] 100 mg PO BID PRN #60 capsule PRN Reason: Constipation Ibuprofen [Motrin] 800 mg PO Q8HR PRN #30 tablet PRN Reason: Pain, Moderate (4-6) oxyCODONE /ACETAMINOPHEN [Percocet 5/325] 1 tab PO Q6HR PRN #30 tablet PRN Reason: Pain - Provider Discharge Summary Activity: routine, no sex for 6 weeks, no heavy lifting 4 weeks, no strenuous exercise Diet: routine Instructions: routine Additional instructions: [] Smoking cessation referral if applicable(refer to patient education folder for contact #) [] Refer to [facility] Booklet Call your doctor immediately for: * Fever > 100.5 * Heavy vaginal bleeding ( >1 pad per hour) * Severe persistent headache * Shortness of breath * Reddened, hot, painful area to leg or breast * Drainage or odor from incision. * Keep incision clean and dry at all times and follow doctor's instructions regarding bathing/showering - Follow up plan Follow up: SAADIA MENESES MD [Primary Care Provider] - 7 Days JAKI MCQUEEN MD [Staff Physician] - 7 Days
[2022-03-21] MEDS: KETOROLAC 30 MG/1 ML INJ IV SCH ×2 (08:04→13:45)
[2022-03-21 08:10] LABS: Blood Urea Nitrogen 4 mg/dL (7-17); Calcium 8.8 mg/dL (8.4-10.2); Hemolysis Index 56
[2022-03-21 08:18] LABS: BUN/Creatinine Ratio 7
[2022-03-21 08:22] LABS: Hematocrit 34.5 % (30.3-42.9); Hemoglobin 12.1 gm/dl (10.1-14.3)
[2022-03-21 13:35] VITALS: BP 108/50
--- NOTE | 2022-03-21 15:10 | Post Anesthesia Evaluation ---
- Post Anesthesia Evaluation Patient Participated: Yes Airway Patent: Yes Stable Respiratory Function: Yes Nausea/Vomiting: No Temp > 96.8F: Yes Pain Manageable: Yes Adequeate Hydration: Yes Anesthesia Complications: No Block Receding Appropriately: Yes (being discharged by provider)
== END 2022-03-21 14:15 | disposition home or self-care (01) ==
LOC: OR 05:55 → OB 11:46
PROVIDERS: ADMIT Obstetrics & Gynecology; ATTEND Obstetrics & Gynecology
DX: D25.9 Leiomyoma of uterus, unspecified (principal); Z20.822 Contact with and (suspected) exposure to COVID-19; R10.2 Pelvic and perineal pain; I10 Essential (primary) hypertension; Z90.49 Acquired absence of other specified parts of digestive tract; Z79.899 Other long term (current) drug therapy; Z98.890 Other specified postprocedural states; Z98.891 History of uterine scar from previous surgery
CPT/HCPCS: 36415; 58552; 64488; 80048; 84703; 85014; 85018; 85025; 86850; 86900; 86901; 88305; 88307; 96365; 96366; 96375; 96376; G0378; G0379; J0690; J0735; J1100; J1170; J1815; J1885; J2250; J2270; J2405; J2704; J2710; J3010; J3490; J7120; J7121; S2900; U0003; 64450; J7060